=== PATIENT | male | born 1960 | race Caucasian/White ===

== ENCOUNTER 2017-09-19 07:33 | Inpatient (IN) | payer OTHER ==
[2017-09-19] VITALS (7 sets, daily range): BP systolic 140–170; BP diastolic 75–99; Ht 182.9 cm; Wt 103.7 kg
[~2017-09-19] VITALS: Ht 182.9 cm; Wt 103.7 kg
[2017-09-19 08:20] LABS: BASOPHIL % 1.3 % (0-2); PLATELET COUNT 199 x10^3mcL (130-400); RED CELL DISTRIBUTION WIDTH 13.6 % (11.5-14.5)
[2017-09-19 08:32] LABS: CALCIUM 9.3 mg/dL (8.5-10.1); CARBON DIOXIDE 27.6 mmol/L (21-32); CHLORIDE SERUM 103 mmol/L (98-107); CREATININE SERUM 1.2 mg/dL (0.7-1.3); GFR1 > 60 mL/min; GLUCOSE SERUM 156 mg/dL (74-106); POTASSIUM SERUM 4.6 mmol/L (3.5-5.1); SODIUM SERUM 139 mmol/L (136-145)
[2017-09-19 08:37] LABS: ALBUMIN 3.8 g/dL (3.4-5.0); ALKALINE PHOSPHATASE 85 U/L (46-116); ALT/SGPT 31 U/L (16-63); AST/SGOT 22 U/L (15-37); BILIRUBIN TOTAL 0.72 mg/dL (0.20-1.00); TOTAL PROTEIN, SERUM 7.4 g/dL (6.4-8.2)
[2017-09-19 11:09] LABS: T3 TOTAL 1.68 ng/mL
[2017-09-19 11:48] LABS: FREE T4 1.31 ng/dL (0.76-1.46); FREE THYROXINE INDEX 3.6 ug/dL (1.4-4.5); T4(THYROXINE) 10.6 ug/dL (4.7-13.3)
[2017-09-19 12:02] LABS: MAGNESIUM 2.2 mg/dL (1.8-2.4)
[2017-09-19 12:04] LABS: CHOLESTEROL/HDL RATIO 9.4
[2017-09-19 14:36] LABS: UA SPECIFIC GRAVITY 1.025 (1.005-1.035); microscopic required? YES; urine erythrocyte 2+ (NEGATIVE)
[2017-09-19 14:46] LABS: AMPHETAMINE QUAL UR NONE DETECTED (NEG <=1000)
[2017-09-20 03:01] VITALS: BP 132/87
[2017-09-20 05:37] LABS: BASOPHIL % 0.3 % (0-2); PLATELET COUNT 192 x10^3mcL (130-400); RED CELL DISTRIBUTION WIDTH 13.7 % (11.5-14.5)
[2017-09-20 06:00] LABS: CALCIUM 8.6 mg/dL (8.5-10.1); CARBON DIOXIDE 26.6 mmol/L (21-32); CHLORIDE SERUM 104 mmol/L (98-107); GFR1 > 60 mL/min; GLUCOSE SERUM 114 mg/dL (74-106); MAGNESIUM 2.1 mg/dL (1.8-2.4); PHOSPHOROUS 2.7 mg/dL (2.5-4.9); SODIUM SERUM 140 mmol/L (136-145)
[2017-09-20 07:30] VITALS: BP 131/83
[2017-09-20 17:08] VITALS: BP 131/91
[2017-09-20 21:59] VITALS: BP 105/56
[2017-09-21 06:35] VITALS: BP 109/59
[2017-09-21 07:47] LABS: PLATELET COUNT 195 x10^3mcL (130-400); RED CELL DISTRIBUTION WIDTH 13.8 % (11.5-14.5)
[2017-09-21 07:50] LABS: BASOPHIL % 2.1 % (0-2)
[2017-09-21 07:53] LABS: CALCIUM 9.1 mg/dL (8.5-10.1); CARBON DIOXIDE 28.1 mmol/L (21-32); CHLORIDE SERUM 103 mmol/L (98-107); CREATININE SERUM 1.1 mg/dL (0.7-1.3); GFR1 > 60 mL/min; GLUCOSE SERUM 118 mg/dL (74-106); MAGNESIUM 2.1 mg/dL (1.8-2.4); PHOSPHOROUS 2.9 mg/dL (2.5-4.9); POTASSIUM SERUM 4.1 mmol/L (3.5-5.1); SODIUM SERUM 139 mmol/L (136-145)
[2017-09-21 09:03] VITALS: BP 145/84
[2017-09-21] MEDS ORDERED: CLOPIDOGREL75 M1 PO (10:32)
[2017-09-21] MEDS ORDERED: ZES5 PO (10:33)
[2017-09-21] MEDS ORDERED: LIPITOR80 MG PO (10:33)
[2017-09-21] MEDS ORDERED: ASP325 PO (10:33)
[2017-09-21] MEDS ORDERED: METOPROLOL TART25 M1 PO (10:33)
[2017-09-21 10:54] VITALS: BP 145/84
== END 2017-09-21 11:14 | disposition home or self-care (01) | DRG 174 ==
LOC: ED 07:33 → DU 10:34 → IC 10:34 → DU 11:19 → IC 16:34 → DU 09-20 16:56 → IC 09-20 16:59 → DU 09-20 17:03
PROVIDERS: Emergency Medicine; Family Medicine; Internal Medicine Interventional Cardiology
PROC: 4A023N7 Measurement of Cardiac Sampling and Pressure, Left Heart, Percutaneous Approach (ICD-10-PCS; 2017-09-19)
PROC: B2151ZZ Fluoroscopy of Left Heart using Low Osmolar Contrast (ICD-10-PCS; 2017-09-19)
PROC: B2111ZZ Fluoroscopy of Multiple Coronary Arteries using Low Osmolar Contrast (ICD-10-PCS; 2017-09-19)
PROC: B44FZZZ Ultrasonography of Right Lower Extremity Arteries (ICD-10-PCS; 2017-09-19)
PROC: B41F1ZZ Fluoroscopy of Right Lower Extremity Arteries using Low Osmolar Contrast (ICD-10-PCS; 2017-09-19)
PROC: 027034Z Dilation of Coronary Artery, One Artery with Drug-eluting Intraluminal Device, Percutaneous Approach (ICD-10-PCS; principal; 2017-09-19 13:30)
DX: I21.09 ST elevation (STEMI) myocardial infarction involving other coronary artery of anterior wall (principal); I50.43 Acute on chronic combined systolic (congestive) and diastolic (congestive) heart failure; I95.9 Hypotension, unspecified; I34.0 Nonrheumatic mitral (valve) insufficiency; F17.200 Nicotine dependence, unspecified, uncomplicated; E78.00 Pure hypercholesterolemia, unspecified; Z82.49 Family history of ischemic heart disease and other diseases of the circulatory system; R00.1 Bradycardia, unspecified; E78.5 Hyperlipidemia, unspecified; E66.9 Obesity, unspecified; Z68.31 Body mass index [BMI] 31.0-31.9, adult; N32.89 Other specified disorders of bladder
CPT/HCPCS: CLHCL; 83880; 84439; 99406; C1769; C1876; C1887; C1894; J1327; J1644; J2001; J2250; J2270; J2405; J3010; J3490; J7030; J7040; Q0092; Q9967

== ENCOUNTER 2017-09-26 03:02 | Emergency (ER) | payer OTHER ==
[~2017-09-26] VITALS: Ht 182.9 cm; Wt 100.0 kg
[~2017-09-26 03:02] MED LIST: ASP325 PO; CLOPIDOGREL75 M1 PO; LIPITOR80 MG PO; METOPROLOL TART25 M1 PO; ZES5 PO
[2017-09-26 03:23] VITALS: Ht 182.9 cm; Wt 100.0 kg
[2017-09-26 05:08] VITALS: BP 127/70
== END 2017-09-26 05:08 | disposition home or self-care (01) ==
LOC: ED 03:02
DX: L27.0 Generalized skin eruption due to drugs and medicaments taken internally (principal); L25.1 Unspecified contact dermatitis due to drugs in contact with skin; T46.4X5A Adverse effect of angiotensin-converting-enzyme inhibitors, initial encounter; Y92.89 Other specified places as the place of occurrence of the external cause
CPT/HCPCS: J7512